=== PATIENT | female | born 1990 | race Caucasian/White ===

== ENCOUNTER 2019-01-12 05:31 | Emergency (ER) | payer SELFPAY ==
[2019-01-12 05:43] VITALS: BP 132/87; PULSE 102; RESP 18; TEMP 36.3; O2SAT 94
--- NOTE | 2019-01-12 06:37 | DI.RAD_ITS ---
SYMPTOM/DIAGNOSIS: COUGH PA AND LATERAL CHEST: Comparison is made with 02/03/14. The heart is normal in size. The lungs are clear. The mediastinal structures and pleura appear intact. CONCLUSION: Normal chest.
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
[2019-01-12] MEDS: Doxycycline Hyclate 100 MG CAP PO (06:45)
[2019-01-12 06:46] VITALS: PULSE 104; RESP 18; RESP 4; O2SAT 95
[2019-01-12] MEDS: Albuterol/Ipratropium 3 ML UPD VIAL UPD ×2 (06:46→07:44)
--- NOTE | 2019-01-12 07:39 | DI.VRAD_ITS ---
EXAM: XR Chest, 2 Views EXAM DATE/TIME: 01/12/2019 6:38 AM CLINICAL HISTORY: 28 years old, female; Signs and symptoms; Other: Cough TECHNIQUE: Imaging protocol: XR of the chest, 2 views. COMPARISON: CR CHEST 2 VIEWS PA,LAT 02/03/2014 8:31 PM FINDINGS: No airspace consolidation, pleural effusion or pneumothorax. The cardiomediastinal silhouette is unremarkable. IMPRESSION: No acute findings. Dictated and Authenticated by: Joseph Westfall MD. Ordering:SALBADOR Aponte MD
[2019-01-12 07:44] VITALS: PULSE 103; RESP 16; RESP 4; O2SAT 94
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
[2019-01-12 08:33] VITALS: BP 112/74; PULSE 102; RESP 18; TEMP 36.9; O2SAT 93
[2019-01-12] MEDS: Albuterol HFA 8 GM 60 PUFF INH IH (08:35)
== END 2019-01-12 08:46 | disposition home or self-care (01) ==
PROVIDERS: Emergency Provider Student in an Organized Health Care Education/Training Program
DX: J45.901 Unspecified asthma with (acute) exacerbation (principal); F17.210 Nicotine dependence, cigarettes, uncomplicated
CPT/HCPCS: 81025; 94640; 99284; 71046; J7620

== ENCOUNTER 2019-01-29 05:39 | Emergency (ER) | payer SELFPAY ==
[2019-01-29 05:42] VITALS: BP 120/77; PULSE 87; RESP 16; TEMP 36.4; O2SAT 96
[2019-01-29 05:50] VITALS: RESP 16
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
[2019-01-29] MEDS: predniSONE 40 MG, predniSONE 10 MG 50 MG PO (06:08)
--- NOTE | 2019-01-29 06:10 | DI.RAD_ITS ---
SYMPTOMS/DIAGNOSIS: COUGH WITH WHEEZE FOR 1 WEEK PA AND LATERAL CHEST: Comparison 01/12/19. The heart is normal in size. The lungs are clear. The mediastinal structures and pleura appear intact. CONCLUSION: Normal chest.
[2019-01-29 06:12] VITALS: PULSE 87; RESP 16; RESP 4; RESP 8; O2SAT 96
[2019-01-29] MEDS: Albuterol/Ipratropium 3 ML UPD VIAL UPD (06:12)
--- NOTE | 2019-01-29 06:15 | DI.VRAD_ITS ---
EXAM: XR Chest, 2 Views EXAM DATE/TIME: 01/29/2019 5:57 AM CLINICAL HISTORY: 28 years old, female; Signs and symptoms; Cough and wheezing; Patient HX: Cough and wheezing for a week TECHNIQUE: Imaging protocol: XR of the chest, 2 views. COMPARISON: CR XR CHEST 2V PA LATERAL 01/12/2019 7:05 AM FINDINGS: Lungs: Unremarkable. No consolidation. Pleural space: Unremarkable. No evidence of pneumothorax. Heart/Mediastinum: Unremarkable. Heart size within normal limits for technique. Bones/joints: Unremarkable. IMPRESSION: No acute findings. Dictated and Authenticated by: Josep Ibrahim MD. Ordering:AMBER Fraga MD
== END 2019-01-29 06:22 | disposition home or self-care (01) ==
PROVIDERS: Emergency Provider Student in an Organized Health Care Education/Training Program
DX: J45.901 Unspecified asthma with (acute) exacerbation (principal)
CPT/HCPCS: 94640; 99283; 71046; J7512; J7620

== ENCOUNTER 2019-05-17 22:31 | Emergency (ER) | payer SELFPAY ==
[2019-05-17 22:38] VITALS: BP 131/81; PULSE 107; RESP 18; TEMP 37.2; O2SAT 94
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
[2019-05-17] MEDS: Lidocaine 5% Patch 1 PATCH TP (23:02)
== END 2019-05-17 23:09 | disposition home or self-care (01) ==
PROVIDERS: Emergency Provider Emergency Medicine
DX: S39.012A Strain of muscle, fascia and tendon of lower back, initial encounter (principal); V43.52XA Car driver injured in collision with other type car in traffic accident, initial encounter
CPT/HCPCS: 99283

== ENCOUNTER 2019-06-24 07:07 | Emergency (ER) | payer OTHER, SELFPAY ==
[2019-06-24 07:15] VITALS: RESP 16
[2019-06-24 07:16] VITALS: BP 101/65; PULSE 88; RESP 26; TEMP 36.8; O2SAT 98
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
[2019-06-24] MEDS: Albuterol HFA 8 GM 60 PUFF INH IH (07:41)
[2019-06-24] MEDS: predniSONE 20 MG TAB 60 MG PO (07:42)
[2019-06-24 07:59] VITALS: BP 105/65; PULSE 89; RESP 18; O2SAT 98
== END 2019-06-24 07:51 | disposition home or self-care (01) ==
PROVIDERS: Emergency Provider Physician Assistant
DX: J45.901 Unspecified asthma with (acute) exacerbation (principal); F17.210 Nicotine dependence, cigarettes, uncomplicated
CPT/HCPCS: 94640; 99283; J7512